=== PATIENT | female | born 1990 | race Caucasian/White ===

== ENCOUNTER 2017-01-13 10:22 | Emergency (ER) | payer OTHER ==
[2017-01-13 10:49] VITALS: TEMP 97.7
[2017-01-13 11:33] LABS: MCH 31.9 pg (25.7-33.7); MCHC 33.6 g/dl (32.0-36.0); MEAN CELL VOLUME 94.9 fl (80-96); PLATELET COUNT 241 K/MM3 (134-434); RDW 12.5 % (11.6-15.6); WHITE BLOOD COUNT 9.6 K/mm3 (4.0-10.0)
--- NOTE | 2017-01-13 11:36 | PDOC ---
History of Present Illness - General Chief Complaint: Syncope/Near Syncope Stated Complaint: SYNCOPE Time Seen by Provider: 01/13/17 10:42 History Source: Patient, Parent(s) - History of Present Illness Initial Comments: 01/13/17 11:23 Patient is a 26 yo F with no significant PMHx presented because of syncopial episode while having a BM after waking up. Patient said the cramping, abdominal pain woke her up and rushed to the bathroom. She felt lightheaded and her legs felt numb before she syncopized. Her mother said she was unconscious for about 30 seconds but was not sure. She said a similar event occurred 2 years ago while having a BM. She has been seeing a pathology secretary for weight loss. Patient has been on a laxative (Senna 4 x a day) and HCTZ 50mg for a few days now. She has been urinating more frequently. Patient denies head trauma, loss of bladder control, tongue biting, shaking movements, chest pain, diarrhea and blood in stool. Past History - Travel Traveled outside of the country in the last 30 days: No - Past Medical History Allergies/Adverse Reactions: Allergies Allergy/AdvReac Type Severity Reaction Status Date / Time No Known Allergies Allergy Verified 01/13/17 10:49 Home Medications: Ambulatory Orders Hydrochlorothiazide [Hctz -] 50 mg PO DAILY 01/13/17 COPD: No Other medical history: denies - Suicide/Smoking/Psychosocial Hx Smoking History: Never smoked Information on smoking cessation initiated: No Hx Alcohol Use: No Drug/Substance Use Hx: No Substance Use Type: None Review of Systems - Review of Systems Constitutional: Yes: Diaphoresis, Weakness. No: Fever, Night Sweats HEENTM: No: Recent change in vision, Throat Pain Respiratory: No: Cough, Shortness of Breath, Wheezing Cardiac (ROS): Yes: Lightheadedness, Syncope. No: Chest Pain ABD/GI: Yes: Nausea, Abdominal cramping. No: Diarrhea, Rectal Bleeding : Yes: Frequency Neurological: Yes: Numbness (b/l LE), Weakness *Physical Exam - Vital Signs Last Vital Signs Temp Pulse Resp BP Pulse Ox 97.7 F 60 19 94/59 98 01/13/17 10:45 01/13/17 10:45 01/13/17 10:45 01/13/17 10:45 01/13/17 10:51 - Physical Exam Comments: 01/13/17 11:53 General: NAD, A/O x 3 HEENT: EOMI, PERRL, conjunctiva clear, dry mucous membranes neck: supple CV: RRR, s1 s2 wnl, pulses 2 + throughout, no murmurs appreciated Abd: +BS, NT, ND, soft Neuro: CN 2-12 intact, strength 5/5 throughout b/l, sensory intact throughout Ext: no peripheral edema ED Treatment Course - LABORATORY CBC & Chemistry Diagram: 01/13/17 11:18 01/13/17 11:18 Medical Decision Making - Medical Decision Making 01/13/17 11:57 Patient is a 26 yo F with no sigificant PMHx on HCTZ 50mg, and Laxatives, presented to the ED because of syncopial episode while having a BM when she woke up this morning. - Syncope likely secondary to volume depletion 2 L IV fluids Normal saline CBC, CMP, Lipase, Mag EKG Reglan Acetaminophen 1000mg Upreg 01/13/17 12:38 BP 106/71 Will monitor 01/13/17 14:11 Patient says symptoms have improved. Will discharge *DC/Admit/Observation/Transfer Diagnosis at time of Disposition: Syncope Qualifiers: Syncope type: unspecified Qualified Code(s): R55 - Syncope and collapse - Discharge Dispostion Disposition: HOME Condition at time of disposition: Improved Admit: No - Referrals Referrals: Lc Alicia MD [Primary Care Provider] - - Patient Instructions Additional Instructions: Stop taking the water pills (Hydrochlorothiazide). It is likely the reason why you passed out. Please follow up with your primary care physician. If you feel your symptoms are worsening, please call your doctor. If it is an emergency go to your nearest emergency department. - Post Discharge Activity Forms/Work/School Notes: Back to Work
[2017-01-13] MEDS ORDERED: ACETAMINOPHEN 1000 MG/100 ML VIAL (NON FORMULARY) IVPB ONE (11:39)
[2017-01-13] MEDS ORDERED: SODIUM CHLORIDE 1,000 ML IV STA ×2 (11:40→12:00)
[2017-01-13] MEDS ORDERED: METOCLOPRAMIDE HCL INJECTION 10 MG/2 ML VIAL IVPUSH ONE (11:40)
[2017-01-13 11:54] LABS: ALBUMIN 3.7 g/dl (3.4-5.0); ANION GAP 12 (8-16); BILIRUBIN,TOTAL 0.5 mg/dL (0.2-1.0); CALCIUM 8.6 mg/dL (8.5-10.1); CO2 23 mmol/L (21-32); CREATININE 0.8 mg/dL (0.55-1.02); GLUCOSE,RANDOM 83 mg/dL (74-106); SGOT/AST 15 U/L (15-37); SGPT/ALT 21 U/L (12-78); TOT PROT 7.3 g/dl (6.4-8.2)
[2017-01-13 11:57] LABS: ALK PHOS 62 U/L (45-117); CPK 100 IU/L (26-192); TROPONIN I < 0.02 ng/ml (0.00-0.05)
[2017-01-13] MEDS ORDERED: METOCLOPRAMIDE HCL INJECTION 10 MG/2 ML VIAL ONE (12:15)
[2017-01-13] MEDS ORDERED: ACETAMINOPHEN INJECTION 100 ML IVPB ONE (12:16)
--- NOTE | 2017-01-13 12:27 | PDOC ---
Attending Attestation - Resident Resident Name: Rosalina Mas - ED Attending Attestation I have performed the following: I have examined & evaluated the patient, The case was reviewed & discussed with the resident, I agree w/resident's findings & plan, Exceptions are as noted - HPI HPI: 01/13/17 12:19 26-year-old female patient with no past medical history presents with syncope. 3 days ago, the patient saw a dietitian and was attempting to lose weight. She was initiated on 50 mg of hydrochlorothiazide, vitamin B12, potassium pills. Has lost 5 lbs of water weight in the last 3 days. Was working at [employer] last night feeling well. Went to bed at 4 am. Woke up this morning with abdominal cramping. Pt went to the bathroom, felt nauseous, dizzy, SOB, and lower extremity tingling. Denied misternal chest pain. Pt felt near syncopal and syncopized for approx 15 seconds. Witnessed by the mother. No trauma noted. Patient feels dehydrated. No recent illnesses. - Physicial Exam PE: 01/13/17 12:27 GENERAL: Awake, alert, and fully oriented, in no acute distress. HEAD: No signs of trauma EYES: PERRLA, EOMI, sclera anicteric, conjunctiva clear ENT: Auricles normal inspection, hearing grossly normal, nares patent, oropharynx clear without exudates. NECK: Normal ROM, supple, no lymphadenopathy, JVD, or masses LUNGS: Breath sounds equal, clear to auscultation bilaterally. No wheezes, and no crackles HEART: Regular rate and rhythm, normal S1 and S2, no murmurs, rubs or gallops ABDOMEN: Soft, nontender, normoactive bowel sounds. No guarding, no rebound. No masses EXTREMITIES: Normal range of motion, no edema. No clubbing or cyanosis. No cords, erythema, or tenderness NEUROLOGICAL: Cranial nerves II through XII grossly intact. Normal speech, normal gait SKIN: Warm, Dry, normal turgor, no rashes or lesions noted. - Medical Decision Making 01/13/17 12:33 Vital Signs Temp Pulse Resp BP Pulse Ox 97.7 F 60 19 94/59 98 01/13/17 10:45 01/13/17 10:45 01/13/17 10:45 01/13/17 10:45 01/13/17 10:51 26 year old F c/ syncope. Likely vasovagal syncope and dehydration. ECG is reassuring. Will send labs, test, and give IVF. If symptoms are improved, and the workup is negative, patient instructed to discontinue all medications recommended by her marketing systems manager and to follow up with primary care physician. 01/13/17 12:57 CBC, BMP 01/13/17 11:18 01/13/17 11:18 CMP Sodium 138 mmol/L (136-145) 01/13/17 11:18 Potassium 3.2 mmol/L (3.5-5.1) L 01/13/17 11:18 Chloride 103 mmol/L (98-107) 01/13/17 11:18 Carbon Dioxide 23 mmol/L (21-32) 01/13/17 11:18 Anion Gap 12 (8-16) 01/13/17 11:18 BUN 15 mg/dL (7-18) 01/13/17 11:18 Creatinine 0.8 mg/dL (0.55-1.02) 01/13/17 11:18 Creat Clearance w eGFR > 60 (>60) 01/13/17 11:18 Random Glucose 83 mg/dL (74-106) 01/13/17 11:18 Calcium 8.6 mg/dL (8.5-10.1) 01/13/17 11:18 Total Bilirubin 0.5 mg/dL (0.2-1.0) 01/13/17 11:18 AST 15 U/L (15-37) 01/13/17 11:18 ALT 21 U/L (12-78) 01/13/17 11:18 Alkaline Phosphatase 62 U/L (45-117) 01/13/17 11:18 Creatine Kinase 100 IU/L (26-192) 01/13/17 11:18 Troponin I < 0.02 ng/ml (0.00-0.05) 01/13/17 11:18 Total Protein 7.3 g/dl (6.4-8.2) 01/13/17 11:18 Albumin 3.7 g/dl (3.4-5.0) 01/13/17 11:18 Lipase 153 U/L (73-393) 01/13/17 11:18 test pending. Patient received 2L of IVF. Pt reports mild tension like headache. Will treat headache. If patient test negative, d/c with PMD follow up. Heart Score/ECG Review #1 ECG reviewed & interpreted by me at: 12:35 01/13/17 12:57 NSR 79, no std/jose a, normal axis, normal intervals, QTC 477 msec, no brugada, no WPW, no HOCM.
[2017-01-13 12:39] VITALS: BP 104/66; PULSE 81
[2017-01-13] MEDS ORDERED: diphenhydrAMINE HCL 25 MG CAPSULE (FP) PO ONE (13:11)
[2017-01-13 14:29] LABS: URINE APPEARANCE SLCLOUDY; URINE BILIRUBIN NEGATIVE (NEGATIVE); URINE BLOOD NEGATIVE (NEGATIVE); URINE COLOR LTYELLOW; URINE GLUCOSE (UA) NEGATIVE (NEGATIVE); URINE KETONE TRACE (NEGATIVE); URINE NITRITE NEGATIVE (NEGATIVE); URINE PROTEIN NEGATIVE (NEGATIVE); URINE UROBILINOGEN NEGATIVE mg/dL (0.2-1.0)
[2017-01-13 17:37] LABS: URINE LEUK ESTERASE Negative (NEGATIVE)
--- NOTE | 2017-01-15 09:55 | EKG ---
Test Reason : Blood Pressure : / mmHG Vent. Rate : 079 BPM Atrial Rate : 079 BPM P-R Int : 188 ms QRS Dur : 088 ms QT Int : 416 ms P-R-T Axes : 041 075 038 degrees QTc Int : 477 ms NORMAL SINUS RHYTHM NORMAL ECG NO PREVIOUS ECGS AVAILABLE Confirmed by CARLOS MALONEY, JORGE ([id number]) on 01/15/2017 9:54:39 AM Referred By: Confirmed By:JORGE GONZALEZ MD
== END 2017-01-13 14:33 | disposition home or self-care (01) ==
LOC: JER 10:22
PROC: 3E0337Z Introduction of Electrolytic and Water Balance Substance into Peripheral Vein, Percutaneous Approach (ICD-10-PCS; principal; 2017-01-13)
DX: R55 Syncope and collapse (principal); E86.9 Volume depletion, unspecified
CPT/HCPCS: 36415; 80053; 81003; 82550; 83690; 83735; 84484; 84703; 85027; 93005; 93010; 96361; 96374; 96375; 99285-25

== ENCOUNTER 2021-02-17 01:14 | Emergency (ER) | payer OTHER ==
[2021-02-17 01:48] VITALS: BP 100/67; PULSE 73; TEMP 98; BMI 33.7
== END 2021-02-17 04:47 | disposition left against medical advice (07) ==
LOC: JER 01:14
DX: R00.1 Bradycardia, unspecified (principal)
CPT/HCPCS: 93005; 93010; 99283-25